=== PATIENT | female | born 1950 | race Caucasian/White ===

== ENCOUNTER 2023-11-04 07:31 | Day surgery (SDC) | payer MEDICARE, OTHER ==
[2023-11-04] MEDS ORDERED: Lidocaine 1% PF 5 ML VIAL ONE (08:16)
[2023-11-04] MEDS ORDERED: Sodium Bicarbonate 2.5 MEQ/5 ML SDV ONE (08:17)
[2023-11-04 09:29] VITALS: BP 133/63; TEMP 97.1
== END 2023-11-04 09:55 | disposition home or self-care (01) ==
LOC: CSHRAD 07:31
PROVIDERS: ATTEND Neurological Surgery
PROC: B01BYZZ Fluoroscopy of Spinal Cord using Other Contrast (ICD-10-PCS; principal; 2023-11-04)
DX: M50.10 Cervical disc disorder with radiculopathy, unspecified cervical region (principal); I10 Essential (primary) hypertension; Z95.0 Presence of cardiac pacemaker; Z90.710 Acquired absence of both cervix and uterus; Z88.5 Allergy status to narcotic agent; Z88.6 Allergy status to analgesic agent; Z79.899 Other long term (current) drug therapy
CPT/HCPCS: 62284; 72126; 77003

== ENCOUNTER 2024-02-12 09:12 | Outpatient (CLI) | payer MEDICARE, OTHER | END 2024-02-12 09:13 | disposition home or self-care (01) | LOC: CSHCT 09:12 | PROVIDERS: ATTEND Nurse Practitioner Family | DX: M47.26 Other spondylosis with radiculopathy, lumbar region (principal); M89.9 Disorder of bone, unspecified; Z98.890 Other specified postprocedural states; K57.30 Diverticulosis of large intestine without perforation or abscess without bleeding | CPT/HCPCS: 72131 ==